=== PATIENT | male | born 2000 | race Caucasian/White ===

== ENCOUNTER → 2020-09-23 15:54 | Outpatient (CLI) | payer OTHER, SELFPAY ==
--- NOTE | ~2020-09-23 | XR_ITS ---
EXAMINATION: XR foot RT min 3V EXAM DATE: 09/23/2020 16:13 INDICATION: Right 2nd toe injury 2 wks ago; PAIN prox phalanx. TECHNIQUE: Right foot dorsoplantar, lateral and oblique projections obtained and reviewed. Addition al lateral projection right 2nd toe. There are no prior studies for comparison. FINDINGS: Acute closed posttraumatic oblique fracture through the shaft of the right 2nd proximal pha lanx. There is about 3 mm of displacement. No periosteal reaction identified at this point. No other suspicious findings. IMPRESSION: Right 2nd proximal phalangeal shaft fracture. Reviewed, dictated and finalized at location B. [facility]
== END ==
PROVIDERS: PCP Pediatrics; Visit Provider Pediatrics
DX: S99.821A Other specified injuries of right foot, initial encounter (principal); S92.501A Displaced unspecified fracture of right lesser toe(s), initial encounter for closed fracture
CPT/HCPCS: 73630

== ENCOUNTER → 2022-02-11 07:58 | Outpatient (CLI) | payer OTHER, SELFPAY ==
--- NOTE | ~2022-02-11 | MR_ITS ---
EXAMINATION: MR elbow RT wo con DATE: 02/11/2022 08:41 INDICATION: Ulnar-sided right elbow pain and stiffness TECHNIQUE: Magnetic resonance imaging (MRI) of the right elbow was performed without intravenous cont rast. Sequences included coronal, axial, and sagittal PD-weighted FS FSE and coronal, axial, and sagi ttal PD-weighted FSE. COMPARISON: None FINDINGS: Osseous/other: Normal alignment. Normal marrow signal with no marrow edema, fracture, osteochondral lesion or abnor mal marrow replacing process. Tendons: Triceps, biceps brachii and brachialis tendons are normal. Common flexor tendon wad is normal. The c ommon extensor tendon wad is normal. Ligaments: The lateral collateral ligament complex is normal. Focal mild thickening and increased signal along t he anteromedial margin of the anterior bundle the medial collateral ligament consistent with a relati vely small partial tear. The majority of the cross sectional area of the ligament remains intact. Cubital tunnel: The ulnar nerve demonstrates normal signal and caliber. At the level the cubital tunnel but appears f lattened which appears to be due to local mass effect resulting from a marker indicating the site of maximal pain which is likely taped to and prominently indents the overlying skin at this location. Cu bital tunnel is otherwise unremarkable. Fluid: Physiologic amount of fluid the elbow joint. IMPRESSION: 1. Small partial tear of the anterior bundle of the medial collateral ligament complex. Reviewed, dictated and finalized at location B.
== END ==
DX: M25.521 Pain in right elbow (principal); S53.431A Radial collateral ligament sprain of right elbow, initial encounter
CPT/HCPCS: 73221

== ENCOUNTER 2025-05-15 17:01 | Outpatient (RCR) | payer OTHER, SELFPAY ==
--- NOTE | 2025-05-15 17:58 | OPREHPOC ---
Outpatient Therapy Plan of Care This is a Multidisciplinary Plan of Care that may contain components documented by all disciplines (PT, OT, and ST.) PT Problem 1 PT Problem #1 Knowledge Deficit PT Goal 1 Goal / Goal Update independent and compliant with HEP Target Visit 4 PT Problem 2 PT Problem #2 Pain PT Goal 1 Goal / Goal Update no pain in the R knee Target Visit 8 PT Problem 3 PT Problem #3 Impaired Strength PT Goal 1 Goal / Goal Update 5/5 R knee strength Target Visit 8 PT Problem 4 PT Problem #4 Impaired Functional Mobility PT Goal 1 Goal / Goal Update LEFS to display 0% functional deficits patient to display normal running/jogging mechanics in straight line patient to return to lifting program Target Visit 8
--- NOTE | 2025-05-15 17:58 | PTOPEVAL1 ---
Assessment and note entered by JT File, PT Evaluation Information Assessment Status Evaluation Diagnosis s/p ACL reconstruction ICD-10 Condition Codes (PT) Pain in right knee M25.561 Onset 01/24/2025 Subjective Information patient had surgery to repair his ACL back on . he did PT for a while out where he was living in [place]. he reports this is the point he is to begin jogging, and reports he is still not fully extending the knee when he walks or stands. he reports it has improved over the past few weeks . he reports he was told to be biking every day for 30 minutes from the MD. he he played baseball in college. he reports he is not playing sports any longer, but would like to be able to return to normal running, squatting, lifting, and eventually skiing. Reported Pain Level Pain Score 0: Self Report Assessment PT Clinical Summary mr. hinson is a 24 yo man who presents to skilled PT services for rehab following R ACL reconstruction nearly 4 months ago. he presents today with continued quad weakness compared to the L side, and deficits in ability to return to functional activities such as running and lifting. he would benefit from continued skilled PT to address his objective/functional deficits and return to his prior level functional activity performance/quality of life. Plan of Care Interventions Gait Training,Manual Therapy,Neuro Re-education, Patient/Caregiver Education,Therapeutic Activities ,Therapeutic Exercise PT Services Indicated Yes Treatment Frequency and 2x weekly for 8 visits Duration These treatments will address the objective and functional deficits as defined above. The patient will be advanced safely and appropriately in order for the patient to progress towards his/her prior level of function. Additional exercises will be introduced and as well as a comprehensive home exercise program upon discharge, if needed, ?to ensure carryover of functional gains achieved in the clinic. This treatment plan has been reviewed and agreement upon by the patient.
--- NOTE | 2025-05-31 07:50 | PCPTNOTE ---
Mr. Fox attended a skilled PT eval on 03/14/2025 for limited mobility in his R knee following R ACLR on 01/24/2025. He did not return to therapy after his evaluation, and he was contacted by the clinic yesterday. Pt states he moved to [place] shortly after his evaluation and he found a different PT clinic up there, and he would like to be discharged. Hannah Humphrey, DPT 05/31/2025
== END 2025-05-15 18:00 | disposition home or self-care (01) ==
LOC: CHSPT 17:01
DX: Z48.89 Encounter for other specified surgical aftercare (principal); Z98.890 Other specified postprocedural states
CPT/HCPCS: 97110; 97161